=== PATIENT | female | born 1960 | race African-American/Black ===

== ENCOUNTER → 2016-05-28 | Outpatient (CLI) | payer OTHER ==
[~2016-05-28] MED LIST: ALPR0.5T3 PO; BENETAB PO; BIOT10TA PO; ESTR42.5V VAGINAL; FURO40TA PO; IBUP-232 PO; K-TA10TA PO; LISI10TA3 PO; LYRI100C PO; MIRA25TA PO; MIRA33504 PO; OXYB5TAB10 PO; PANT40TA3 PO; PREG25 PO; REGL5TAB PO; SERT-129 PO; TOVI4TAB PO; ZOLP10TA3 PO
[2016-05-28 11:17] LABS: AUTOMATED NEUTROPHIL # 2.7 TH/MM3 (1.8-7.7); BASOPHIL % 0.6 % (0.0-2.0); EOSINOPHIL # 0.2 TH/MM3 (0-0.4); EOSINOPHIL % 3.3 % (0.0-4.0); HEMATOCRIT 35.6 % (35.0-46.0); HEMO FLAGS DIFF FINAL; LYMPH % 38.8 % (9.0-44.0); LYMPHOCYTE # 2.2 TH/MM3 (1.0-4.8); MEAN CELL VOLUME 89.6 FL (80.0-100.0); MEAN CORPUSCULAR HEMOGLOBIN 29.9 PG (27.0-34.0); MEAN CORPUSCULAR HGB CONC 33.4 % (32.0-36.0); MONO % 9.7 % (0.0-8.0); NEUT % 47.6 % (16.0-70.0); PLATELET COUNT 221 TH/MM3 (150-450); RED BLOOD COUNT 3.98 MIL/MM3 (4.00-5.30); RED CELL DISTRIBUTION WIDTH 13.5 % (11.6-17.2); WHITE BLOOD COUNT 5.7 TH/MM3 (4.0-11.0)
[2016-05-28 11:24] LABS: BLOOD, URINE NEG (NEG); COMMENT (UR) CULT NOT INDICATED; CULTURE IF INDICATED CULT NOT INDICATED; GLUCOSE,URINE NEG (NEG); KETONE, URINE NEG (NEG); MUCUS URINE FEW /lpf (OCC); NITRITE,URINE NEG (NEG); SQUAMOUS EPITHELIAL CELL URINE 1 /hpf (0-5); URINE COLOR YELLOW (YELLW/STRAW)
[2016-05-28 11:32] LABS: ALKALINE PHOSPHATASE 108 U/L (45-117); ALT (GPT) 28 U/L (10-53); ANION GAP 5 MEQ/L (5-15); AST (GOT) 17 U/L (15-37); BICARBONATE 30.8 MEQ/L (21.0-32.0); BLOOD UREA NITROGEN 19 MG/DL (7-18); CHLORIDE 101 MEQ/L (98-107); GLOMERULAR FILTRATION RATE 71 ML/MIN (>89); GLUCOSE,FASTING 109 MG/DL (74-99); POTASSIUM 4.4 MEQ/L (3.5-5.1); SODIUM (NA) 137 MEQ/L (136-145); TOTAL BILIRUBIN ADULT 0.3 MG/DL (0.2-1.0)
--- NOTE | 2016-05-28 14:00 | EKG ---
Date Performed: 05/28/2016 Time Performed: 09:45:54 PTAGE: 56 years EKG: Sinus rhythm NONSPECIFIC T-WAVE ABNORMALITY Compared to the previous tracing nonspecific T wave changes are sligh tly more prominent BORDERLINE ECG PREVIOUS TRACING : 04/25/2011 02.27 DOCTOR: Daryn Yeh Interpretating Date/Time 05/28/2016 13:58:35
== END ==
LOC: CPRE 09:16
PROVIDERS: ATTEND Obstetrics & Gynecology Gynecology
DX: Z01.810 Encounter for preprocedural cardiovascular examination (principal); Z01.812 Encounter for preprocedural laboratory examination; R39.82 Chronic bladder pain; R93.8 Abnormal findings on diagnostic imaging of other specified body structures
CPT/HCPCS: 36415; 80053; 81001; 85025; 93005

== ENCOUNTER → 2016-06-05 | Day surgery (SDC) | payer OTHER ==
[~2016-06-05] VITALS: Ht 152.4 cm; Wt 91.5 kg
[~2016-06-05] MED LIST changes: +*morphine SULFATE 8 MG/ML PERIprocedure ONLY ONE; +CHLORHEXIDINE GLUCONATE 2 % 1 PACK (2 CLOTHS) TOPICAL PRN; +INSULIN HUMAN REGULAR 1,000 UNITS/10 ML VIAL SQ PRN; +KETOROLAC TROMETHAMINE 10 MG TAB PO PRN; +KETOROLAC TROMETHAMINE 30 MG/ML (IVP) VIAL IV PUSH PRN; +KETOROLAC TROMETHAMINE 60 MG/2 ML (IM) VIAL IM ONE; +LACTATED RINGER'S 1000 ML IV PRN; +METOPROLOL TARTRATE 25 MG TAB PO PRN; +MIDAZOLAM HCL 2 MG/2 ML VIAL ONE; +ONDANSETRON HCL 4 MG/2 ML VIAL IV PUSH ONE; +ONDANSETRON HCL 4 MG/2 ML VIAL IV PUSH PRN; +POVIDONE IODINE 5% (ANTISEPSIS KIT) 4 APPLICATIONS EACH NARE PRN; -PREG25 PO; +PROPOFOL 200 MG/20 ML AMP IV ONE; +SODIUM CHLORID 0.9% 500 ML IV PRN; +ceFAZolin 1,000 MG/NS 100 ML IV SCH
[2016-06-05 08:07] VITALS: BP 115/75; PULSE 81; RESP 18; TEMP 98; O2SAT 95
--- NOTE | 2016-06-05 09:51 | MH ---
cc: LADAN OCHOA MD, JASON DATE OF ADMISSION: 06/05/2016 DATE OF [birth year] REASON FOR ADMISSION Cystoscopy and hysteroscopy. HISTORY OF PRESENT ILLNESS Patient is a 56-year-old black female 2, para 2 status post two C-sections who has issues with hypertension, gastroparesis and elevated body mass index. She has had an ultrasound that shows thickened endometrial stripe with fluid in the cavity. She also has issues with stress urinary incontinence and insensate urine loss. She did not tolerate attempt at cystoscopy in the office or biopsy. She is now scheduled for the above procedures. PAST MEDICAL HISTORY 1. Hypertension, 2. Gastroparesis, 3. Anxiety 4. Adult onset diabetes 5. Obstructive sleep apnea MEDICATIONS 1. Lyrica b.i.d., 2. Sertraline 100 mg daily, 3. Xanax 0.5 mg b.i.d. 4. Ambien 10 mg q.h.s., 5. Lasix 40 mg daily, 6. Ditropan 5 mg q.12 h ALLERGIES CODEINE LORTAB ULTRACET PAST SURGICAL HISTORY Noncontributory SOCIAL HISTORY Has good social support. No alcohol, tobacco or drugs. GYNECOLOGIC HISTORY No STDs or abnormal Pap smears. OBSTETRICAL HISTORY Two C-sections FAMILY HISTORY Noncontributory. REVIEW OF SYSTEMS As above. No chest pain, orthopnea, PND. Remainder of 14-point review negative. PHYSICAL EXAMINATION VITAL SIGNS: She is afebrile, vital signs stable. Blood pressure is 140/80, height is 5 feet, weight is 198, BMI is 38.5. GENERAL: Patient is alert and oriented no acute stress. No sign of cognitive dysfunction or depression. HEENT: Within normal limits. NECK: Supple. No JVD. CHEST: Clear. HEART: Regular rate and rhythm. ABDOMEN: Soft, nontender. No hepatosplenomegaly, masses or tenderness. PELVIC: Detailed under anesthesia in the office we note pop Q score Aa is -3, Ap is -3, point C is -10, genital hiatus is four. No significant postvoid residual. Remainder of exam under anesthesia. EXTREMITIES: Normal skin without rashes NEUROLOGIC: Nonfocal. No DVT signs. ASSESSMENT Patient with ultrasound showing thickened endometrial stripe with fluid in postmenopausal patient. This is an abnormal finding. We discussed options and she wants to proceed with hysteroscopy D&C. She is aware of the risks, benefits and alternatives of the planned procedure including damage to surrounding organs, bleeding, infection and possibility for need for further procedures. The patient has issues with stress incontinence, insensate loss of urine. She is not able to tolerate cystoscopy or urodynamics the office. Plan is to perform cystoscopy and evaluate the bladder and urethra. The patient is aware the risks, benefits and alternatives of the planned procedure. She is also aware of the possibility that there will be no firm diagnosis arrived at. She has made informed choice to proceed. At this point, we will use DVT prophylaxis with sequential compression device, Ancef 1 gram for antibiotic prophylaxis. Anticipate outpatient procedure. MD CHERI Grove/ /4:26 PM /9:49 AM
--- NOTE | 2016-06-05 10:09 | MH ---
cc: LADAN OCHOA This is a second dictation of this H&P. DATE OF ADMISSION 06/05/2016 REASON FOR ADMISSION Scheduled for hysteroscopy for abnormal endometrial stripe and diagnostic cystoscopy for bladder incontinence and pain. HISTORY The patient is a 56-year-old black female 2, para 2 who has had issues with hypertension, adult onset diabetes, gastroparesis, elevated BMI. She was in my office for stress incontinence and insensate loss of urine. Her evaluation involved a sonogram that showed an abnormal endometrium. Also she had significant tenderness along the bladder, but was unable to tolerate in office cystoscopy. The patient reports no recent vaginal bleeding. She has stress incontinence and insensate loss of urine. No recent urinary tract infections. PAST MEDICAL HISTORY The patient has a medical history of: 1. Gastroparesis 2. Elevated body mass index 3. Hypertension 4. Mild depression MEDICATIONS 1. Lyrica one b.i.d. 2. Sertraline 100 mg b.i.d. 3. Xanax 0.5 mg b.i.d. 4. Ambien 10 mg q.h.s. p.r.n. 5. Lasix 40 mg daily 6. Potassium chloride supplement 10 mEq b.i.d. ALLERGIES CODEINE, LORTAB AND ULTRACET GYNECOLOGIC HISTORY No STD's or abnormal Pap smears. Last menstrual period was several years ago. OBSTETRICAL HISTORY Two C-sections FAMILY HISTORY Noncontributory SOCIAL HISTORY Does not smoke, take alcohol or drugs. Has a good social support. REVIEW OF SYSTEMS As above, no chest pain, orthopnea, PND. She has chronic nausea and stomach distress related to gastroparesis, otherwise a 14-point review negative. PHYSICAL EXAM On her exam, she is afebrile. Vital signs stable. Blood pressure is 140/80, height 5 feet, weight 196, BMI is 38. GENERAL: The patient is alert and oriented in no acute distress. No sign of cognitive dysfunction or depression. HEENT: Within normal limits. NECK: Supple. No JVD. CHEST: Clear. HEART: Regular rate and rhythm. ABDOMEN: Soft and nontender. No hepatosplenomegaly. No CVA tenderness. PELVIC: Exam in the office shows POP-Q score: Aa is -3, Ap is -3. Point C is 10. Total vaginal length is 10. Genital hiatus is 4. Perineal body is 4, levator muscle strength is 1/5. Sacral nerve reflexes are decreased. No postvoid residual. No significant urethral hypermobility. Further exam under anesthesia. EXTREMITIES: Normal. Skin without rashes. NEUROLOGIC: Nonfocal. No DVT signs. IMAGING STUDIES Ultrasound shows thickened endometrial stripe with fluid collection, otherwise unremarkable. ASSESSMENT/PLAN Patient with bladder pain issues and incontinence, unable to tolerate cystoscopy in the office. Anticipate diagnostic cystoscopy to evaluate possible etiologies of the above complaint. The patient with thickened endometrial stripe and fluid in the cavity. Unable to obtain biopsy in the office. The patient is aware of the risks, benefits and alternatives to the planned procedure including damage to surrounding organs, bleeding, infection, and the possibility that she may need a further procedure down the road based on the operative findings and pathology report. The patient expressed understanding of the plan. We will use DVT prophylaxis for antibiotic coverage with Ancef one gram and DVT prophylaxis with sequential compression device. Anticipate outpatient procedure. MD CHERI Grove/DAE /9:43 AM /9:58 AM
--- NOTE | 2016-06-05 11:01 | PD.OP ---
Operative Report Date of Surgery: Jun 05, 2016 Preoperative Diagnosis: (1) Bladder pain (2) Abnormal ultrasound of uterus Postoperative Diagnosis: (1) Bladder pain (2) Abnormal ultrasound of uterus (3) Uterine synechiae Procedure: HYSTEROSCOPIC LYSIS OF UTERINE ADHESIONS CYSTOSCOPY AND HYDRODISTENTION Anesthesia: LMA Surgeon: Demetris Correa Ordnance Mechanic(s): EVI X 1 Operation and Findings: SCARING AND ADHESIONS/SYNECHIAE OF UTERUS NORMAL CAVITY AFTER LYSIS AND SOUNDS 10 CM NORMAL BLADDER AND URETHRA BLADDER CAPACITY 400 CC SEE DICTATED REPORT FOR DETAILS EBL <5 CC NO DRAINS NO COMPLICATIONS Demetris Correa MD Jun 05, 2016 11:01
[2016-06-05 11:55] VITALS: BP 105/65; PULSE 62; RESP 18; TEMP 97.4; O2SAT 97
--- NOTE | 2016-06-10 06:54 | MP ---
cc: LADAN OCHOA MD DATE OF SURGERY 06/05/2016 PREOPERATIVE DIAGNOSES 1. Stress incontinence and bladder pain. 2. Abnormal endometrial cavity on ultrasound. POSTOPERATIVE DIAGNOSES 1. Stress incontinence and bladder pain. 2. Abnormal endometrial cavity on ultrasound. 3. Lower segment and cervix adhesions and synechiae. PROCEDURE Hysteroscopic lysis of adhesions of the endometrial cavity. Diagnostic cystoscopy with hydrodistention. SURGEON MD Sunny ANESTHESIA Laryngeal mask. BLOOD LOSS Less than 5 cc. URINE OUTPUT 200 cc. AGRI BUSINESS AGENT Priddy staff x 1. FINDINGS External genitalia normal. POP-Q score: Aa is -3, Ap is -3. Point C is -10. Total vaginal length is 10. Genital hiatus is 4. Perineal body is 5. The uterus is significantly anteverted, anteflexed. Stenotic cervical os and lower uterine segment with adhesions. Once the adhesins were taken down, the cavity was relatively uniform and smooth but there was approximately 50-75 cc of a mucinous type of fluid expressed from the cavity. The uterine cavity sounds to 10 cm. The Uterus is anteverted and anteflexed. No adnexal mass. Cystoscopy shows normal trigone, good coaptation of urethra. Ureteral orifices patent x 2. Dome and base of bladder normal. With hydrodistention there is no significant glomerulations or ulceration. Anesthetic bladder capacity is 400 cc. SPECIMENS Endometrial curettage. COMPLICATIONS None. DISPOSITION To the Recovery Room stable. COUNTS Needle and sponge correct. DRAINS None. ANTIBIOTIC PROPHYLAXIS Ancef 1 gram. DVT PROPHYLAXIS Sequential compression device. TIME-OUT PROCEDURE Per protocol. SUMMARY OF INDICATIONS and PROCEDURE Patient with two separate issues, one was bladder pain and stress incontinence. She was unable to tolerate in-office cystoscopy or urodynamic testing. Urinalysis has been negative. She complains of insensate loss of urine and stress incontinence. The patient has per the workup had an ultrasound that showed thickened endometrial stripe and fluid in the endometrial cavity. The patient was taken to the operating room theatre, prepped and draped in fashion appropriate for the planned procedure. She was in dorsal lithotomy position with careful attention paid to placement of the legs in the stirrups to avoid undue stress to sensitive neurovascular structures. The above findings were noted, neurovascular integrity documented. The cervix was identified, grasped with a tenaculum. There were adhesions within the first 2 cm of the cervical os. These were taken down with mechanical technique without using any electrosurgical current. Once the office was patent and the lower uterine segment was clear of adhesions, we were then able to dilate the cervix and introduce the cystoscope which showed relatively smooth endometrial cavity with some wispy endometrium, but no significant abnormalities. There was approximately 50-75 cc of a mucinous type fluid expressed from the cavity once the adhesions were taken down. Curettage obtained, the hysteroscopic procedure concluded. Cystoscopy performed using a 17-[place] bridge a 70-degree scope. Sterile water was used to distend the cavity. Hydrodistention was performed without complication. Bladder capacity is 400 cc. Repeat cystoscopy showed no significant glomerulations or ulcerations. The patient tolerated the procedure well, went to the recovery room in stable condition. MD CHERI Grove/SSB /10:48 AM /6:34 AM
== END | disposition home or self-care (01) ==
LOC: HSDC 07:19
PROVIDERS: ATTEND Obstetrics & Gynecology Gynecology
DX: N39.3 Stress incontinence (female) (male) (principal); N85.6 Intrauterine synechiae; I10 Essential (primary) hypertension; E11.9 Type 2 diabetes mellitus without complications; K31.84 Gastroparesis; G47.33 Obstructive sleep apnea (adult) (pediatric); F41.9 Anxiety disorder, unspecified
CPT/HCPCS: 00952; 52000; 58559; 88305; J0690; J1885; J2250; J2270; J2405; J3010